=== PATIENT | male | born 1995 | race Caucasian/White ===

== ENCOUNTER 2017-02-25 10:18 | Day surgery (SDC) | payer OTHER ==
[~2017-02-25] VITALS: Ht 182.9 cm; Wt 100.0 kg
[2017-02-25 10:00] VITALS: BP 123/66
[~2017-02-25 10:18] MED LIST: NO MEDS
[2017-02-25] MEDS ORDERED: LIDOCAINE 2% (SDV) 5 ML INJ ONE (10:41)
[2017-02-25] MEDS ORDERED: PROPOFOL 40 ML ONE (10:41)
[2017-02-25 10:53] VITALS: Ht 182.9 cm; Wt 100.0 kg
[2017-02-25] MEDS ORDERED: FAMOTIDINE PO (11:00)
[2017-02-25] MEDS ORDERED: OMEPRAZOLE PO (11:00)
[2017-02-25] MEDS ORDERED: SLEEP AID PO (11:00)
[2017-02-25] MEDS ORDERED: METOCLOPRAMIDE PO (11:00)
[2017-02-25] MEDS ORDERED: FAMOTIDINE 20 MG INJ ONE (11:10)
[2017-02-25 11:47] VITALS: BP 114/68
--- NOTE | 2017-02-26 07:31 | GILP ---
DATE OF PROCEDURE: INDICATIONS: The patient with Mono fundoplication done for chronic vomiting, but shortly after hi s surgery, he has been throwing up. He had intermittent throwing up. Right now he is on full medic ations including PPI, metoclopramide and ranitidine and that seemed to settle his stomach, but becau se so soon after surgery, he started having dry heaving and retching and actually threw up, had hist ory of hematemesis, the possibility of the Mono ____ schedule. He also had glandular epithelium noted in the distal esophageal biopsy. PREOPERATIVE DIAGNOSES: Chronic vomiting, chronic abdominal pain status post Mono fundoplication, history of hematemesis. POSTOPERATIVE DIAGNOSES: 1. Esophagitis inside the Mono fold ____ Mono fundoplication as evidenced by the presence of ga stric mucosa protruding into the distal esophagus and ____ when the scope was retroflexed, and the N issen folds interrupting total doughnut shape around the scope, there was a little detachment noted. Pyloric mound was noted too, biopsies pending. DESCRIPTION OF PROCEDURE: Pros and cons of procedure were discussed with the mother in detail and i nformed consent taken. Actually I got consent from the patient because he is now an adult. In the distal esophagus, abundance of mucus was noted; actually a lot of mucus was noted from the proximal to distal esophagus. There was a triangular shaped esophagitis noted inside the Mono folds in par t of gastric mucosa protruded into the distal esophagus. This suggested the Mono had slipped slig htly. When I entered the stomach and retroflexed the scope, the Mono fold was still like a doughnu t shape surrounding the scope, except on each side there was ____ and ____ the thick fold was string like thickness of muscle that represented detachment of the fold. In the pylorus, there is a thick mound, biopsy from the duodenum, the pylorus mound and the distal esophagus above the Z line was do ne. PLAN: 1. Have patient restart and continue all medication including metoclopramide. The patient has been on metoclopramide in the past and did not have any adverse reaction, although he was aware of what to look for. 2. Follow up the biopsy. 3. I will see him back in the office. Dictated By: TRE MATSON/SUYAPA Conf#: [id number] DID#: [id number]
== END 2017-02-25 16:15 | disposition home or self-care (01) ==
LOC: GIL 10:18
PROVIDERS: ATTEND Specialist
DX: K20.8 Other esophagitis (principal)
CPT/HCPCS: 43239; 88305; Z7610